=== PATIENT | male | born 1990 | race Caucasian/White ===

== ENCOUNTER 2017-11-26 14:17 | Emergency (ER) | payer OTHER ==
[2017-11-26 14:17] VITALS: BMI 21.9
[2017-11-26 14:24] VITALS: BP 117/75; PULSE 75; RESP 20; TEMP 98; O2SAT 98
--- NOTE | 2017-11-26 14:42 | C.PDOC ---
Time Seen by Provider: 11/26/17 14:35 Chief Complaint (Nursing): Cough, Cold, Congestion History Per: Patient Onset/Duration Of Symptoms: Days (about 1 week) Current Symptoms Are (Timing): Still Present Associated Symptoms: Cough Severity: Moderate Additional History Per: Prior Records Past Medical History Reviewed: Historical Data, Nursing Documentation, Vital Signs Vital Signs: Last Vital Signs Temp 98.0 F 11/26/17 14:22 Pulse 75 11/26/17 14:22 Resp 20 11/26/17 14:22 BP 117/75 11/26/17 14:22 Pulse Ox 98 11/26/17 14:22 - Medical History PMH: No Chronic Diseases Family History: States: Unknown Family Hx - Social History Hx Tobacco Use: Yes Hx Alcohol Use: Yes Hx Substance Use: No - Immunization History Hx Tetanus Toxoid Vaccination: Yes Hx Influenza Vaccination: No Hx Pneumococcal Vaccination: No Review Of Systems Except As Marked, All Systems Reviewed And Found Negative. Constitutional: Negative for: Fever, Weakness ENT: Negative for: Nose Congestion Cardiovascular: Negative for: Chest Pain Respiratory: Positive for: Cough. Negative for: Shortness of Breath, Hemoptysis Gastrointestinal: Negative for: Vomiting, Abdominal Pain Musculoskeletal: Negative for: Neck Pain Skin: Negative for: Rash Neurological: Negative for: Weakness, Numbness Physical Exam - Physical Exam Appears: Non-toxic, No Acute Distress Skin: Normal Color, Warm, Dry, No Rash Head: Atraumatic, Normacephalic Eye(s): bilateral: Normal Inspection, PERRL, EOMI Neck: Normal ROM, Supple Lymphatic: No Adenopathy Cardiovascular: Rhythm Regular Respiratory: Normal Breath Sounds, No Accessory Muscle Use Gastrointestinal/Abdominal: Soft, No Tenderness Extremity: Normal ROM, No Pedal Edema Neurological/Psych: Oriented x3, Normal Motor, Normal Sensation ED Course And Treatment O2 Sat by Pulse Oximetry: 98 Pulse Ox Interpretation: Normal Progress Note: Pt is requesting Promethazine with Codeine. I informed him that I will no prescribe him with Codeine because it is a narcotic. Disposition Counseled Patient/Family Regarding: Diagnosis, Need For Followup, Rx Given - Disposition Referrals: [facility] [Outside] Disposition: HOME/ ROUTINE Disposition Time: 14:42 Condition: STABLE Additional Instructions: Follow up with your doctor or in the clinic. Return to the ER if you develop fever, shortness of breath, chest pain, worsening of symptoms or if you have any other concerns. Prescriptions: Promethazine/Dextromethorphan [Promethazine-Dm Syrup] 5 ml PO Q4 PRN #1 syrup PRN Reason: Cough Instructions: Cough, Adult (DC) - Clinical Impression Clinical Impression: Cough
== END 2017-11-26 14:57 | disposition home or self-care (01) ==
LOC: C.ER 14:17
DX: R05 Cough (principal); Z72.0 Tobacco use

== ENCOUNTER 2018-01-18 06:51 | Emergency (ER) | payer OTHER ==
[2018-01-18 06:51] VITALS: BMI 21.9
[2018-01-18 07:06] VITALS: RESP 18; O2SAT 98
--- NOTE | 2018-01-18 07:42 | C.PDOC ---
History Of Present Illness LIMITED DUE TO CLIN COND, POOR HISTORIAN ETOH INTOX UNK ONSET. ROS UTO EXAM NARD HEENT ATRAUM; +AOB PSYCH ACUTE INTOX, UNCOOP W EXAM NEURO FOCAL RESPOND TO PAIN STIM; NO GROSS FOCAL DEF REMAINDER NEG MDM ACUTE INTOX, NOT MED CLEAR FOR DC Time Seen by Provider: 01/18/18 07:39 Chief Complaint (Nursing): Substance Abuse History Per: Patient History/Exam Limitations: clinical condition Onset/Duration Of Symptoms: Unknown Current Symptoms Are (Timing): Still Present Severity: Moderate Past Medical History Reviewed: Historical Data, Nursing Documentation, Vital Signs Vital Signs: Last Vital Signs Temp 98.4 F 01/18/18 07:01 Pulse 85 01/18/18 07:01 Resp 18 01/18/18 07:01 BP 132/73 01/18/18 07:01 Pulse Ox 98 01/18/18 08:21 - Medical History PMH: No Chronic Diseases Surgical History: No Surg Hx Family History: States: No Known Family Hx - Social History Hx Tobacco Use: Yes Hx Alcohol Use: Yes Hx Substance Use: No - Immunization History Hx Tetanus Toxoid Vaccination: Yes Hx Influenza Vaccination: No Hx Pneumococcal Vaccination: No Review Of Systems Review Of Systems: ROS cannot be obtained secondary to pt's inabilty to answer questions. Physical Exam - Physical Exam Appears: Other (NARD) Skin: Normal Color, Warm, Dry Head: Atraumatic, Normacephalic Eye(s): bilateral: Normal Inspection Oral Mucosa: Moist, Other (AOB) Cardiovascular: Rhythm Regular Respiratory: Normal Breath Sounds, No Accessory Muscle Use, No Rales, No Rhonchi , No Wheezing Neurological/Psych: Other (Psych: acute intox, uncooperative with exam Neuro: focal, respond to pain stim; no gross focal deficit) ED Course And Treatment O2 Sat by Pulse Oximetry: 98 (RA) Pulse Ox Interpretation: Normal Reevaluation Time: 08:43 Reassessment Condition: Improved (CLEAR SPEECH, STEADY GAIT. NO S/S ACUTE INTOX. ) Medical Decision Making Medical Decision Making: ACUTE INTOX, NOT MED CLEAR FOR DC Disposition Counseled Patient/Family Regarding: Diagnosis, Need For Followup - Disposition Referrals: Phan Rm DO [Primary Care Provider] - Disposition: HOME/ ROUTINE Disposition Time: 08:43 Condition: IMPROVED Forms: [employer] (Upper Sorbian), General Discharge Instructions - Clinical Impression Clinical Impression: Alcohol intoxication - Scribe Statement The provider has reviewed the documentation as recorded by the Scribe Faisal Treadwell Provider Attestation: All medical record entries made by the Scribe were at my direction and personally dictated by me. I have reviewed the chart and agree that the record accurately reflects my personal performance of the history, physical exam, medical decision making, and the department course for this patient. I have also personally directed, reviewed, and agree with the discharge instructions and disposition.
[2018-01-18 08:45] VITALS: BP 135/78; PULSE 79; TEMP 98.2
== END 2018-01-18 08:59 | disposition home or self-care (01) ==
LOC: C.ER 06:51 → SUPCPDRO 06:51 → C.ER 08:59
DX: F10.129 Alcohol abuse with intoxication, unspecified (principal)